=== PATIENT | female | born 1980 | race Caucasian/White ===

== ENCOUNTER 2016-10-30 23:49 | Emergency (ER) | payer OTHER ==
[2016-10-30 23:55] VITALS: BP 103/74; PULSE 88; TEMP 98.6; BMI 25.4
--- NOTE | 2016-10-31 00:04 | PDOC ---
History of Present Illness - General Chief Complaint: Pain Stated Complaint: R EAR/JAW PAIN, BODY ACHES Time Seen by Provider: 10/30/16 23:56 History Source: Patient Exam Limitations: No Limitations - History of Present Illness Initial Comments: 10/31/16 00:21 This is a 36-year-old female comes in complaining of several complaints. Patient is complaining of an infection in her breast/painful lump, and right ear pain. Patient denies any fevers or chills but is complaining of body aches. Patient is 3 months and nursing. Patient said that the infection has been progressive 1 day and she did hot soaks to the area and it seemed to get worse. PAST MEDICAL HISTORY: no significant history PAST SURGICAL HISTORY: no significant history FAMILY HISTORY: no pertinant history SOCIAL HISTORY: Pt lives with family and is employed. MEDICATIONS: reviewed ALLERGIES: As per nursing notes Review of Systems General: No fevers or chills, no weakness, no weight loss HEENT: No change in vision. No sore throat,. + ear pain CardioVascular: No chest pain or shortness of breath Respiratory:No cough, or wheezing. Breast: Infection/painful area Gastrointestinal: no nausea, vomitting, diarrhea or constipation, No rectal bleeding Genitourinary: No dysuria, hematuria, or frequency Musculoskeletal: No joint or muscle pain or swelling Neurologic: No headache, vertigo, dizziness or loss of consciousness Psychiatric: nor depression Skin: No rashes or easy bruising Endocrine: no increased thirst or abnormal weight change Allergic: no skin or latex allergy All other systems reviewed and normal GENERAL: The patient is awake, alert, and fully oriented, in no acute distress. HEAD: Normal with no signs of trauma. EARS: Left tympanic membrane is normal, right tympanic membrane is dull and slightly red. EYES: Pupils equal, round and reactive to light, extraocular movements intact, sclera anicteric, conjunctiva clear. BREASTS: Left breast is normal on evaluation, right breast shows an area of induration, erythema tenderness but no palpable collection at this time EXTREMITIES: Normal range of motion, no edema. NEUROLOGICAL: Normal speech, normal gait. PSYCH: Normal mood, normal affect. SKIN: Warm, Dry, normal turgor, no rashes or lesions noted. Assessment and plan: This is a 36-year-old female who is 3 months nursing who has a right otitis media and a right breast cellulitis/mastitis. Patient given vancomycin here in the emergency room and discharged with a prescription for Bactrim DS. Patient was told to discard her breast milk tonight but once she starts the Bactrim tomorrow she can breast feed again. Patient however was instructed to call her OB doctor and follow-up with her OB doctor tomorrow as well for reevaluation. Past History - Past Medical History Allergies/Adverse Reactions: Allergies Allergy/AdvReac Type Severity Reaction Status Date / Time No Known Allergies Allergy Unverified 01/10/12 03:18 Home Medications: Ambulatory Orders Keppra 1,000 mg PO BID 01/10/12 Sulfamethoxazole/Trimethoprim [Bactrim DS -] 2 tab PO BID #40 tablet 10/31/16 Anemia: Yes (SICKLE CELL,THALASSEMIA MAJOR) Seizures: Yes - Surgical History Appendectomy: Yes (2007) - Immunization History Td Vaccination: No - Psycho/Social/Smoking Cessation Hx Anxiety: No Suicidal Ideation: No Smoking Status: No Smoking History: Unknown if ever smoked Have you smoked in the past 12 months: No Number of Cigarettes Smoked Daily: 0 Information on smoking cessation initiated: No Hx Alcohol Use: No Drug/Substance Use Hx: No Substance Use Type: None *Physical Exam - Vital Signs Last Vital Signs Temp Pulse Resp BP Pulse Ox 98.6 F 88 14 103/74 100 10/30/16 23:52 10/30/16 23:52 10/30/16 23:52 10/30/16 23:52 10/30/16 23:52 *DC/Admit/Observation/Transfer Diagnosis at time of Disposition: Cellulitis of right breast, Mastitis - Discharge Dispostion Disposition: HOME Condition at time of disposition: Good Admit: No - Patient Instructions Printed Discharge Instructions: DI for Mastitis Additional Instructions: Tylenol or Motrin as needed for pain. Warm soaks to the infected area of the breast 3-4 times a day as discussed. Call your OB in the morning and have your OB reevaluate the breast. Discard your breast milk overnight Get your prescription filled for Bactrim take your first tablet tomorrow morning after taking the Bactrim U can restart breast-feeding. Return to the emergency department immediately with ANY new, persistent or worsening symptoms. Continue any medications as previously prescribed by your physician. You should follow up with your primary doctor as soon as possible regarding today's emergency department visit. . Please make sure your doctor reviews the results of your emergency evaluation. Thank you for coming to the Emergency Department today for your care. It was a pleasure to see you today. Please note that your evaluation is INCOMPLETE until you follow-up with your doctor.
[2016-10-31] MEDS ORDERED: VANCOMYCIN 1,000 MG VIAL (RESTRICTED TO ID ONLY) ONE (00:19)
[2016-10-31] MEDS ORDERED: VANCOMYCIN 1 GRAM (PRE-DOCKED) 1,000 MG/250 ML BAG IVPB ONE (00:20)
[2016-10-31] MEDS ORDERED: diphenhydrAMINE HCL 50 MG CAPSULE ONE (01:42)
== END 2016-10-31 03:00 | disposition home or self-care (01) ==
LOC: FER 23:49
DX: N61.0 Mastitis without abscess (principal); D57.80 Other sickle-cell disorders without crisis; D56.1 Beta thalassemia
CPT/HCPCS: 99282-25

== ENCOUNTER 2016-12-02 20:45 | Emergency (ER) | payer OTHER ==
[2016-12-02 20:55] VITALS: BP 107/77; PULSE 88; TEMP 97.9; BMI 25.4
--- NOTE | 2016-12-02 21:03 | PDOC ---
History of Present Illness - General History Source: Patient Exam Limitations: No Limitations - History of Present Illness Initial Comments: 12/02/16 21:08 The patient is a 36 year old female with a significant past medical history of MRSA, who presents to the ER with cysts in both armpits. Patient states she was previously admitted and treated for MRSA with vancomycin a few months ago. She was discharged with clindamycin. Patient says she is currently off the clindamycin and developed nodules in both armpits. She states the nodules are tender to touch. She denies taking any pain medication. Patient says she is currently her 3 month old child. Denies weakness, numbness, paresthesia Denies fever, chills Denies purulence PAST MEDICAL HISTORY: MRSA PAST SURGICAL HISTORY: no significant history FAMILY HISTORY: no pertinent history SOCIAL HISTORY: Pt lives with family and is employed. MEDICATIONS: reviewed ALLERGIES: As per nursing notes <DeonRadha - Last Filed: 12/02/16 21:11> - General History Source: Patient Exam Limitations: No Limitations - History of Present Illness Initial Comments: 12/02/16 21:33 A portion of this note was documented by scribe services under my direction. I have reviewed the details of the note, within reason, and agree with the documentation. The case summary and management plan written by me. 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 Patient was recently on clindamycin for a MRSA infection of the breast. Patient has been off clindamycin and now comes in with some subcutaneous nodules in her axilla is bilateral. On exam they appear to be very early infected ingrown hairs. Patient was started on clindamycin again told to do hot soaks to the area and follow-up with her OB and infectious disease doctors. <Tommie Barksdale I - Last Filed: 12/02/16 21:34> - General Chief Complaint: Abscess Boil Stated Complaint: "I HAVE CYSTS IN BOTH MY ARMPITS" Time Seen by Provider: 12/02/16 20:56 Past History <DeonRadha - Last Filed: 12/02/16 21:11> - Past Medical History Anemia: Yes (SICKLE CELL,THALASSEMIA MAJOR) Seizures: Yes Other medical history: h/o MASTITIS - Surgical History Appendectomy: Yes (2007) - Immunization History Td Vaccination: No - Psycho/Social/Smoking Cessation Hx Anxiety: No Suicidal Ideation: No Smoking Status: No Smoking History: Never smoked Have you smoked in the past 12 months: No Number of Cigarettes Smoked Daily: 0 Hx Alcohol Use: No Drug/Substance Use Hx: No Substance Use Type: None <Tommie Barksdale I - Last Filed: 12/02/16 21:34> - Past Medical History Allergies/Adverse Reactions: Allergies Allergy/AdvReac Type Severity Reaction Status Date / Time sulfamethoxazole Allergy Rash Verified 12/02/16 20:46 [From Bactrim] trimethoprim [From Bactrim] Allergy Rash Verified 12/02/16 20:46 Home Medications: Ambulatory Orders Clindamycin [Cleocin -] 300 mg PO TID #21 capsule 12/02/16 Levetiracetam [Keppra -] 500 mg PO BID 12/02/16 Review of Systems - Review of Systems Comments:: 12/02/16 21:09 General: No fevers or chills, no weakness, no weight loss HEENT: No change in vision. No sore throat,. No ear pain CardioVascular: No chest pain or shortness of breath Respiratory:No cough, or wheezing. Gastrointestinal: no nausea, vomiting, diarrhea or constipation, No rectal bleeding Genitourinary: No dysuria, hematuria, or frequency Musculoskeletal: No joint or muscle pain. Neurologic: No headache, vertigo, dizziness or loss of consciousness Psychiatric: no depression Skin: (+) Nodules on bilateral armpits. Endocrine: no increased thirst or abnormal weight change Allergic: no skin or latex allergy All other systems reviewed and normal <Uts,Radha - Last Filed: 12/02/16 21:11> *Physical Exam - Vital Signs Last Vital Signs Temp Pulse Resp BP Pulse Ox 97.9 F 88 18 107/77 100 12/02/16 20:45 12/02/16 20:45 12/02/16 20:45 12/02/16 20:45 12/02/16 20:45 - Physical Exam Comments: 12/02/16 21:09 General: Well-nourished well-developed individual, no acute distress HEENT: Throat: Normal, tonsils normal, no erythema or exudate Neck: Supple, no meningeal signs, no lymphadenopathy Eyes::Pupils equal reactive and round, extraocular motion intact Chest: Nontender to palpation Cardiac: S1-S2 normal, regular rate and rhythm, no murmurs rubs or gallops Respiratory: Lungs clear to auscultation bilateral Abdomen: Soft, nondistended, normal bowel sounds, nontender to palpation diffusely Extremities: Warm, dry, no cyanosis, clubbing, or edema Skin: Subcutaneous firm nodules in bilateral axilla with mild erythema and tenderness. No palpable collection. No discharge. Neuro: Alert and oriented x3, nonfocal exam, grossly intact, normal gait Psych: Normal mood and affect <Radha Chavarria - Last Filed: 12/02/16 21:11> - Vital Signs Last Vital Signs Temp Pulse Resp BP Pulse Ox 97.9 F 88 18 107/77 100 12/02/16 20:45 12/02/16 20:45 12/02/16 20:45 12/02/16 20:45 12/02/16 20:45 <Tommie Barksdale I - Last Filed: 12/02/16 21:34> *DC/Admit/Observation/Transfer - Attestations Scribe Attestion: 12/02/16 21:10 Documentation prepared by Radha Chavarria, acting as medical practice administrator for Tommie Barksdale MD. <Radha Chavarria - Last Filed: 12/02/16 21:11> - Discharge Dispostion Admit: No <Tommie Barksdale I - Last Filed: 12/02/16 21:34> Diagnosis at time of Disposition: Axillary adenitis - Discharge Dispostion Disposition: HOME Condition at time of disposition: Stable - Prescriptions Prescriptions: Clindamycin [Cleocin -] 300 mg PO TID #21 capsule - Patient Instructions Additional Instructions: Take clindamycin 1 tablet 3 times a day for 7 days. Follow-up with your infectious disease specialist this week. Hot soaks to the armpit areas where the lumps are. Return if you develop any fevers, increasing swelling redness and pain to the areas. Return to the emergency department immediately with ANY new, persistent or worsening symptoms. Continue any medications as previously prescribed by your physician. You should follow up with your primary doctor as soon as possible regarding today's emergency department visit. . Please make sure your doctor reviews the results of your emergency evaluation. Thank you for coming to the Emergency Department today for your care. It was a pleasure to see you today. Please note that your evaluation is INCOMPLETE until you follow-up with your doctor.
[2016-12-02] MEDS ORDERED: CLINDAMYCIN HCL 300 MG CAPSULE PO ONE (21:04)
[2016-12-02] MEDS ORDERED: CLINDAMYCIN HCL 150 MG CAPSULE (FP) ONE (21:11)
== END 2016-12-02 21:16 | disposition home or self-care (01) ==
LOC: FER 20:45
DX: I88.9 Nonspecific lymphadenitis, unspecified (principal); Z86.14 Personal history of Methicillin resistant Staphylococcus aureus infection; E87.1 Hypo-osmolality and hyponatremia; D56.1 Beta thalassemia
CPT/HCPCS: 99283-25

== ENCOUNTER 2016-12-08 17:50 | Emergency (ER) | payer OTHER ==
[2016-12-08 18:05] VITALS: BP 107/87; PULSE 119; TEMP 98.3; BMI 24.9
[2016-12-08] MEDS ORDERED: LIDOCAINE HCL 1%, 10 MG/ML (50 mL VIAL) SQ ONE (18:32)
--- NOTE | 2016-12-08 18:34 | PDOC ---
History of Present Illness - General History Source: Patient Exam Limitations: No Limitations - History of Present Illness Initial Comments: 12/08/16 18:47 The patient is a 36 year old female with a significant past medical history of MRSA who presents to the ED with complaints of pain to the left armpit for several days. Patient was recently seen in the ED on 11/25/16 and was diagnosed with axillary adenitis and discharged home with clindamycin. 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 Patient comes into the ED with bilateral axillary abscess. She reports worsening pain and swelling in the left armpit. Patient is a young infant. Denies nausea or vomiting. Denies fevers or chills. Denies chest pain or shortness of breath. Denies any other symptoms. <Mary Jo Blank - Last Filed: 12/08/16 18:47> <Carlyn Marquez - Last Filed: 12/08/16 19:17> - General Chief Complaint: Abscess Boil Stated Complaint: LEFT AXILLARY BOIL Time Seen by Provider: 12/08/16 18:26 Past History <Mary Jo Blank - Last Filed: 12/08/16 18:47> - Past Medical History Anemia: Yes (SICKLE CELL,THALASSEMIA MAJOR) Seizures: Yes - Surgical History Appendectomy: Yes (2007) - Immunization History Td Vaccination: No - Psycho/Social/Smoking Cessation Hx Anxiety: No Suicidal Ideation: No Smoking Status: No Smoking History: Never smoked Have you smoked in the past 12 months: No Number of Cigarettes Smoked Daily: 0 Hx Alcohol Use: No Drug/Substance Use Hx: No Substance Use Type: None <Carlyn Marquez - Last Filed: 12/08/16 19:17> - Past Medical History Allergies/Adverse Reactions: Allergies Allergy/AdvReac Type Severity Reaction Status Date / Time sulfamethoxazole Allergy Rash Verified 12/02/16 20:46 [From Bactrim] trimethoprim [From Bactrim] Allergy Rash Verified 12/02/16 20:46 Home Medications: Ambulatory Orders Clindamycin [Cleocin -] 300 mg PO TID #21 capsule 12/02/16 Levetiracetam [Keppra -] 500 mg PO BID 12/02/16 Review of Systems - Review of Systems Able to Perform ROS?: Yes Comments:: 12/08/16 18:47 GENERAL/CONSTITUTIONAL: No fever or chills. No weakness. HEAD, EYES, EARS, NOSE AND THROAT: No change in vision. No ear pain or discharge. No sore throat. CARDIOVASCULAR: No chest pain or shortness of breath. RESPIRATORY: No cough, wheezing, or hemoptysis. GASTROINTESTINAL: No nausea, vomiting, diarrhea or constipation. GENITOURINARY: No dysuria, frequency, or change in urination. MUSCULOSKELETAL: No joint or muscle swelling or pain. No neck or back pain. SKIN:+ left armpit abscess, with pain and swelling. No rash NEUROLOGIC: No headache, vertigo, loss of consciousness, or change in strength/ sensation. ENDOCRINE: No increased thirst. No abnormal weight change. HEMATOLOGIC/LYMPHATIC: No anemia, easy bleeding, or history of blood clots. ALLERGIC/IMMUNOLOGIC: No hives or skin allergy. All Other Systems: Reviewed and Negative <Mary Jo Blank - Last Filed: 12/08/16 18:47> *Physical Exam - Vital Signs Last Vital Signs Temp Pulse Resp BP Pulse Ox 98.3 F 119 H 16 107/87 100 12/08/16 17:57 12/08/16 17:57 12/08/16 17:57 12/08/16 17:57 12/08/16 17:57 - Physical Exam Comments: 12/08/16 18:48 GENERAL: Awake, alert, and fully oriented, in no acute distress HEAD: No signs of trauma EYES: PERRLA, EOMI, sclera anicteric, conjunctiva clear ENT: Auricles normal inspection, hearing grossly normal, nares patent, oropharynx clear without exudates. Moist mucosa NECK: Normal ROM, supple, no lymphadenopathy, JVD, or masses LUNGS: Breath sounds equal, clear to auscultation bilaterally. No wheezes, and no crackles HEART: Regular rate and rhythm, normal S1 and S2, no murmurs, rubs or gallops ABDOMEN: Soft, nontender, normoactive bowel sounds. No guarding, no rebound. No masses EXTREMITIES: Normal range of motion, no edema. No clubbing or cyanosis. No cords, erythema, or tenderness NEUROLOGICAL: Normal speech SKIN: + left axillary palpable fluctuance, 1in x 1in, with overlying redness and warmth. Right axillary small nodule, no fluctuance. Warm, Dry, normal turgor , no rashes or lesions noted. <Mary Jo Blank - Last Filed: 12/08/16 18:47> - Vital Signs Last Vital Signs Temp Pulse Resp BP Pulse Ox 98.3 F 119 H 16 107/87 100 12/08/16 17:57 12/08/16 17:57 12/08/16 17:57 12/08/16 17:57 12/08/16 17:57 <Carlyn Marquez - Last Filed: 12/08/16 19:17> Procedures - Incision and Drainage I&D Site: Left: Axilla Betadine cleansed: Yes Anesthesia: 1% Lidocaine Blade Size: 11 Attempts: 1 Plain Packing: Yes Complications: none <Carlyn Marquez - Last Filed: 12/08/16 19:17> Medical Decision Making - Medical Decision Making 12/08/16 18:33 36 yo F with h/o adenitis here with c/o left axillaqry pain swelling. was started on clindamycin recently no improveement. no f/c no n/v. saw a surgeon who recommended surgery. no other complaints. no drainage. on exam noted to have left axillary fluctuance, 1 in x 1 in, overlying redness, an warmth. right axillasmall nodule, no fluctuance. plan I & D , continue abx and surgery followup. 12/08/16 19:15 I& D performed. expressed 2 - 3 ml pus, tolerated well. iodoform packing placed. dc home told to return 48 hours for wound eval. <Carlyn Marquez - Last Filed: 12/08/16 19:17> *DC/Admit/Observation/Transfer - Attestations Scribe Attestion: 12/08/16 18:48 Documentation prepared by Mary Jo Blank, acting as diagnostic medical sonographer for Carlyn Marquez MD <Mary Jo Blank - Last Filed: 12/08/16 18:47> - Discharge Dispostion Admit: No <Carlyn Marquez - Last Filed: 12/08/16 19:17> Diagnosis at time of Disposition: Abscess - Discharge Dispostion Disposition: HOME Condition at time of disposition: Good - Referrals Referrals: Flory Bradford [Primary Care Provider] - - Patient Instructions Printed Discharge Instructions: DI for Incision and Drainage of a Skin Abscess Additional Instructions: return to ED in 48 hours for packing removal. return for fever, or any concerns. take ibuprofen 400 mg every 8 hours as needed for pain. continue taking clindamycin.
== END 2016-12-08 19:20 | disposition home or self-care (01) ==
LOC: FER 17:50
PROC: 0H9CX0Z Drainage of Left Upper Arm Skin with Drainage Device, External Approach (ICD-10-PCS; principal; 2016-12-08)
DX: L02.412 Cutaneous abscess of left axilla (principal)
CPT/HCPCS: 99282-25

== ENCOUNTER 2016-12-10 19:33 | Emergency (ER) | payer OTHER ==
[2016-12-10 19:47] VITALS: BP 101/68; PULSE 70; TEMP 98; BMI 26.6
--- NOTE | 2016-12-10 20:10 | PDOC ---
Suture Removal/Wound Check HPI - History of Present Illness Chief Complaint: Wound Stated Complaint: WOUND RECHECK Time Seen by Provider: 12/10/16 19:51 History Source: Yes: Patient Exam Limitations: Yes: No Limitations Treated at: [facility] ED Date of Last ED visit: 12/08/16 - Previous ED Treatment Type of procedure performed on last visit: Yes: I&D of Abscess Tetanus Immunization: Yes: Up to Date Antibiotics Prescribed: Yes - Onset of Previous Treatment Date of Occurence: 12/08/16 Comment:: 36 yo F presents for wound check s/p I&D of L axillary abscess 2 days ago. Wound was packed and she was placed on clinda. She states she has been uncomfortable, but no severe pain, no fever. She has left the dressing in place. Past History - Past Medical History Allergies/Adverse Reactions: Allergies sulfamethoxazole [From Bactrim] Allergy (Verified 12/10/16 19:37) Rash trimethoprim [From Bactrim] Allergy (Verified 12/10/16 19:37) Rash Home Medications: Ambulatory Orders Clindamycin [Cleocin -] 300 mg PO TID #21 capsule 12/02/16 Levetiracetam [Keppra -] 500 mg PO BID 12/02/16 Clindamycin [Cleocin -] 450 mg PO Q8H #63 capsule 12/10/16 - Reproductive History LMP: 01/09/12 - Immunization History Tetanus Status: Unknown - Social History Smoking History: No Smoking Status: Never smoked Number of Ciarettes Per Day: 0 Alcohol Use: none Drug Use: none Suture Removal/Wound Check PE - Physical Exam Comments: GENERAL: Awake, alert, and fully oriented, in no acute distress EXTREMITIES: Normal range of motion, no edema. No clubbing or cyanosis. No cords, erythema, or tenderness SKIN: Warm, Dry, normal turgor, no rashes. L arm with gauze in place. *Review of Systems - Review of Systems Able to Perform ROS?: Yes Comments:: GENERAL/CONSTITUTIONAL: No fever or chills. No weakness. MUSCULOSKELETAL: No joint or muscle swelling or pain. No neck or back pain. SKIN: No rash Procedures - Additional Procedures Progress: Packing removed. With mod purulent material on it. Small amt of pus expressed from the wound. No surrounding induration or cellulitis. Medical Decision Making - Medical Decision Making Based on the amount of packing, it appears that the wound was extensive. Will continue the clinda- 450 mg TID x7 days. Rx sent to pharmacy. There was problem with previous prescription, so she missed dose today. I gave 600 mg in ED. Sterile gauze placed on the wound. I counseled her to use warm salt water soaks twice a day if able, to help the wound heal, but also to keep it open. *DC/Admit/Observation/Transfer Diagnosis at time of Disposition: Abscess - Discharge Dispostion Disposition: HOME Condition at time of disposition: Stable Admit: No - Prescriptions Prescriptions: Clindamycin [Cleocin -] 450 mg PO Q8H #63 capsule - Patient Instructions Printed Discharge Instructions: DI for Incision and Drainage of a Skin Abscess Additional Instructions: WARM SALT WATER SOAKS TWICE A DAY, THEN DRESS WITH DRY GAUZE.
[2016-12-10] MEDS ORDERED: CLINDAMYCIN HCL 300 MG CAPSULE PO ONE (20:16)
[2016-12-10] MEDS ORDERED: CLINDAMYCIN HCL 150 MG CAPSULE (FP) ONE (20:19)
--- NOTE | 2016-12-14 07:43 | PDOC ---
Patient Follow-up (Call Back) - Post ED Follow - Up Condition at time of discharge: Stable Disposition at time of original discharge: HOME - Disposition Additional Instructions/Notes: Wound culture from the abscess is presumptive for MRSA. Patient is artery on clindamycin. Sensitivities are pending. No change in treatment is required at this time. Patient to continue clindamycin pending final culture results with sensitivities. Further results to be checked, based upon the callback system, will likely be ready tomorrow.
== END 2016-12-10 20:22 | disposition home or self-care (01) ==
LOC: FER 19:33
DX: Z48.01 Encounter for change or removal of surgical wound dressing (principal)
CPT/HCPCS: 87070; 87186; 87205; 99282-25

== ENCOUNTER 2018-02-15 15:48 | Emergency (ER) | payer OTHER ==
[2018-02-15 16:00] VITALS: BP 108/70; PULSE 70; TEMP 98.4; BMI 26.6
[2018-02-15] MEDS ORDERED: ONDANSETRON *ODT* 4 MG TABLET SL ONE (16:00)
[2018-02-15] MEDS ORDERED: ONDANSETRON *ODT* 4 MG TABLET ONE (16:05)
--- NOTE | 2018-02-15 16:08 | PDOC ---
Attending Attestation - Resident Resident Name: Fili Joy - ED Attending Attestation I have performed the following: I have examined & evaluated the patient, The case was reviewed & discussed with the resident, I agree w/resident's findings & plan, Exceptions are as noted - HPI HPI: 37 yo F presents with nausea/vomiting. She states that she missed her period in January, took a home test and it was positive. She states that after she took the test, she started to develop nausea, and now has been unable to keep anything down. She called her shift production associate, the covering physician referred her to the ED. Denies abd pain, fever, dysuria. - Physicial Exam PE: GENERAL: Awake, alert, and fully oriented, in no acute distress HEAD: No signs of trauma EYES: PERRLA, EOMI, sclera anicteric, conjunctiva clear ENT: Auricles normal inspection, hearing grossly normal, nares patent, oropharynx clear without exudates. Dry mucosa NECK: Normal ROM, supple, no lymphadenopathy, JVD, or masses LUNGS: Breath sounds equal, clear to auscultation bilaterally. No wheezes, and no crackles HEART: Regular rate and rhythm, normal S1 and S2, no murmurs, rubs or gallops ABDOMEN: Soft, nontender, normoactive bowel sounds. No guarding, no rebound. No masses EXTREMITIES: Normal range of motion, no edema. No clubbing or cyanosis. No cords, erythema, or tenderness NEUROLOGICAL: Cranial nerves II through XII grossly intact. Normal speech, normal gait SKIN: Warm, Dry, normal turgor, no rashes or lesions noted. - Medical Decision Making Will give zofran ODT. Patient declined IV placement in ED, preferred to go home and take oral rehydration. No signs of acute abdomen. Stable for DC home.
--- NOTE | 2018-02-15 16:09 | PDOC ---
History of Present Illness <Gabriella Moeller - Last Filed: 02/15/18 16:09> - General History Source: Patient Exam Limitations: No Limitations - History of Present Illness Initial Comments: 02/15/18 16:11 Patient is a 37F with history of sickle cell trait, thalassemia, seizure disorder and sarcoidosis here today complaining of nausea and vomiting for the past two days. Patient is , LMP 2 months ago. She had similar episode of vomiting in her prior . Denies fevers, chills, blood in vomit, abdominal pain, vaginal bleeding. <Fili Joy - Last Filed: 02/15/18 16:16> - General Chief Complaint: Nausea Stated Complaint: PRENGANCY NAUSEA Time Seen by Provider: 02/15/18 15:50 Past History <Gabriella Moeller - Last Filed: 02/15/18 16:09> - Past Medical History Anemia: Yes (SICKLE CELL,THALASSEMIA MAJOR) COPD: No Seizures: Yes Other medical history: SARCOIDOSIS - Surgical History Appendectomy: Yes (2007) - Reproductive History Is Patient Now?: Yes (SELF REPORTED) - Immunization History Td Vaccination: No - Suicide/Smoking/Psychosocial Hx Smoking Status: No Smoking History: Never smoked Have you smoked in the past 12 months: No Number of Cigarettes Smoked Daily: 0 Hx Alcohol Use: Yes (SOCIAL) Drug/Substance Use Hx: No Substance Use Type: None <Fili Joy - Last Filed: 02/15/18 16:16> - Past Medical History Allergies/Adverse Reactions: Allergies Allergy/AdvReac Type Severity Reaction Status Date / Time sulfamethoxazole Allergy Rash Verified 12/10/16 19:37 [From Bactrim] trimethoprim [From Bactrim] Allergy Rash Verified 12/10/16 19:37 Home Medications: Ambulatory Orders levETIRAcetam [Keppra -] 500 mg PO BID 12/02/16 Ondansetron [Zofran *Odt*] 8 mg SL BID #10 od.tablet 02/15/18 Review of Systems - Review of Systems Comments:: 02/15/18 16:13 GENERAL/CONSTITUTIONAL: No fever or chills. No weakness. HEAD, EYES, EARS, NOSE AND THROAT: No change in vision. No ear pain or discharge. No sore throat. CARDIOVASCULAR: No chest pain or shortness of breath RESPIRATORY: No cough, wheezing, or hemoptysis. GASTROINTESTINAL: +nausea, vomiting. No diarrhea or constipation. GENITOURINARY: No dysuria, frequency, or change in urination. MUSCULOSKELETAL: No joint or muscle swelling or pain. No neck or back pain. SKIN: No rash NEUROLOGIC: No headache, vertigo, loss of consciousness, or change in strength/ sensation. ENDOCRINE: No increased thirst. No abnormal weight change HEMATOLOGIC/LYMPHATIC: No anemia, easy bleeding, or history of blood clots. ALLERGIC/IMMUNOLOGIC: No hives or skin allergy. <Fili Joy - Last Filed: 02/15/18 16:16> *Physical Exam - Vital Signs Last Vital Signs Temp Pulse Resp BP Pulse Ox 98.4 F 70 17 108/70 100 02/15/18 15:49 02/15/18 15:49 02/15/18 15:49 02/15/18 15:49 02/15/18 15:49 <Gabriella Moeller - Last Filed: 02/15/18 16:09> - Vital Signs Last Vital Signs Temp Pulse Resp BP Pulse Ox 98.4 F 70 17 108/70 100 02/15/18 15:49 02/15/18 15:49 02/15/18 15:49 02/15/18 15:49 02/15/18 15:49 - Physical Exam Comments: 02/15/18 16:14 GENERAL: Awake, alert, and fully oriented, in no acute distress HEAD: No signs of trauma, normocephalic, atraumatic EYES: PERRLA, EOMI, sclera anicteric, conjunctiva clear ENT: Auricles normal inspection, hearing grossly normal, nares patent, oropharynx clear without exudates. Dry mucosa NECK: Normal ROM, supple, no lymphadenopathy, JVD, or masses LUNGS: No distress, speaks full sentences, clear to auscultation bilaterally HEART: Regular rate and rhythm, normal S1 and S2, no murmurs, rubs or gallops, peripheral pulses normal and equal bilaterally. ABDOMEN: Soft, nontender, normoactive bowel sounds. No guarding, no rebound. No masses EXTREMITIES: Normal inspection, Normal range of motion, no edema. No clubbing or cyanosis. NEUROLOGICAL: Cranial nerves II through XII grossly intact. Normal speech, normal gait, no focal sensorimotor deficits SKIN: Warm, Dry, normal turgor, no rashes or lesions noted. <Fili Joy - Last Filed: 02/15/18 16:16> ED Treatment Course - Medications Given in the ED: ED Medications Discontinued Medications Generic Name Dose Route Start Last Admin Trade Name Freq PRN Reason Stop Dose Admin Ondansetron HCl 4 mg 02/15/18 16:00 02/15/18 16:07 Zofran Odt - SL 02/15/18 16:01 4 mg ONCE ONE Administration <Gabriella Moeller - Last Filed: 02/15/18 16:09> - Medications Given in the ED: ED Medications Discontinued Medications Generic Name Dose Route Start Last Admin Trade Name Freq PRN Reason Stop Dose Admin Ondansetron HCl 4 mg 02/15/18 16:00 02/15/18 16:07 Zofran Odt - SL 02/15/18 16:01 4 mg ONCE ONE Administration <Fili Joy - Last Filed: 02/15/18 16:16> Medical Decision Making - Medical Decision Making 02/15/18 16:14 Patient is 37F at ~ 2 months here today with nausea and vomiting. Vital signs normal and stable. No abdominal pain. Patient offered IV hydration, but does not wish to stay for IV. Will PO hydrate at home. Given return precautions. Has follow up appointment in 2 days. <Fili Joy - Last Filed: 02/15/18 16:16> *DC/Admit/Observation/Transfer - Discharge Dispostion Decision to Admit order: No <Gabriella Moeller - Last Filed: 02/15/18 16:09> - Discharge Dispostion Decision to Admit order: No <Fili Joy - Last Filed: 02/15/18 16:16> Diagnosis at time of Disposition: Hyperemesis gravidarum Nausea & vomiting Qualifiers: Vomiting type: unspecified Vomiting Intractability: non-intractable Qualified Code(s): R11.2 - Nausea with vomiting, unspecified - Discharge Dispostion Disposition: HOME Condition at time of disposition: Stable - Prescriptions Prescriptions: Ondansetron [Zofran *Odt*] 8 mg SL BID #10 od.tablet - Referrals Referrals: Flory Bradford [Primary Care Provider] - - Patient Instructions - Post Discharge Activity
== END 2018-02-15 16:16 | disposition home or self-care (01) ==
LOC: FER 15:48
DX: O26.891 Other specified pregnancy related conditions, first trimester (principal); Z3A.08 8 weeks gestation of pregnancy; O21.0 Mild hyperemesis gravidarum
CPT/HCPCS: 99282-25; Q0162

== ENCOUNTER 2019-07-10 01:31 | Emergency (ER) | payer OTHER ==
[2019-07-10 01:45] VITALS: BP 110/67; PULSE 90; TEMP 98.5; BMI 23.9
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
== END 2019-07-10 01:58 | disposition home or self-care (01) ==
LOC: FER 01:31
DX: S80.12XA Contusion of left lower leg, initial encounter (principal); W22.8XXA Striking against or struck by other objects, initial encounter; Y93.89 Activity, other specified; Y92.89 Other specified places as the place of occurrence of the external cause; Z88.8 Allergy status to other drugs, medicaments and biological substances; F17.210 Nicotine dependence, cigarettes, uncomplicated; R56.9 Unspecified convulsions; D57.3 Sickle-cell trait
CPT/HCPCS: 99281-25

== ENCOUNTER 2019-07-19 12:45 | Emergency (ER) | payer OTHER ==
[2019-07-19 13:12] VITALS: TEMP 97.9; BMI 23.8
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
[2019-07-19 13:56] LABS: BASO % 0.7 % (0-2.0); HEMOGLOBIN 11.7 GM/dl (10.7-15.3); MONO % 9.3 % (3.8-10.2)
[2019-07-19 14:02] LABS: EOS % 4.2 % (0-4.5); HEMATOCRIT 35.7 % (32.4-45.2); LYMPH % 26.5 % (8-40); MCHC 32.9 g/dl (32.0-36.0); MEAN PLT VOLUME 9.1 fl (7.5-11.1); NEUT % 59.3 % (42.8-82.8); PLATELET COUNT 215 K/MM3 (134-434); RBC 4.35 M/mm3 (3.60-5.2); RDW 14.3 % (11.6-15.6); WHITE BLOOD COUNT 4.4 K/mm3 (4.0-10.8)
[2019-07-19 14:04] LABS: ALBUMIN 4.4 g/dl (3.4-5.0); BILIRUBIN,TOTAL 0.7 mg/dl (0.2-1); CALCIUM 8.9 mg/dl (8.5-10); CREATININE 0.7 mg/dl (0.55-1.3); TOT PROT 7.2 g/dl (6.4-8.2)
[2019-07-19 17:28] VITALS: BP 96/58; PULSE 75
--- NOTE | 2019-07-20 12:45 | EKG ---
Test Reason : Blood Pressure : / mmHG Vent. Rate : 063 BPM Atrial Rate : 063 BPM P-R Int : 108 ms QRS Dur : 084 ms QT Int : 440 ms P-R-T Axes : 019 078 047 degrees QTc Int : 450 ms POOR DATA QUALITY, INTERPRETATION MAY BE ADVERSELY AFFECTED SINUS RHYTHM WITH SHORT IL OTHERWISE NORMAL ECG NO PREVIOUS ECGS AVAILABLE Confirmed by MD Alberts Daniel ([id number]) on 07/20/2019 12:44:43 PM Referred By: Confirmed By:Alejandro Alberts MD
== END 2019-07-19 17:41 | disposition home or self-care (01) ==
LOC: FER 12:45
DX: S80.12XD Contusion of left lower leg, subsequent encounter (principal); Z88.8 Allergy status to other drugs, medicaments and biological substances; D57.3 Sickle-cell trait; D86.9 Sarcoidosis, unspecified; F41.9 Anxiety disorder, unspecified
CPT/HCPCS: 36415; 71046-TC-FY; 71275-TC; 80053; 81025; 85025; 85379; 93005; 93971-TC; 99284-25; Q9967

== ENCOUNTER 2021-06-28 08:13 | Emergency (ER) | payer OTHER ==
[2021-06-28 08:32] VITALS: BP 97/84; TEMP 99.9; BMI 23.1
[2021-06-28 10:12] VITALS: PULSE 85
== END 2021-06-28 08:33 | disposition home or self-care (01) ==
LOC: FER 08:13
DX: R19.7 Diarrhea, unspecified (principal)
CPT/HCPCS: 99283-25; C9803; U0003; U0005

== ENCOUNTER 2023-06-07 13:14 | Emergency (ER) | payer OTHER ==
[2023-06-07 13:32] VITALS: BP 109/69; PULSE 75; RESP 18; TEMP 97.8; BMI 23.9
[2023-06-07] MEDS ORDERED: SODIUM CHLORIDE 0.9% 1000 ML INFUS.BAG IV ONE (13:47)
[2023-06-07] MEDS ORDERED: METOCLOPRAMIDE HCL INJECTION 10 MG/2 ML VIAL IVPUSH ONE (13:47)
[2023-06-07] MEDS ORDERED: ACETAMINOPHEN 1000 MG/100 ML BAG IVPB ONE (13:47)
[2023-06-07] MEDS ORDERED: ACETAMINOPHEN INJECTION 100 ML IVPB ONE (14:02)
[2023-06-07] MEDS ORDERED: METOCLOPRAMIDE HCL INJECTION 10 MG/2 ML VIAL ONE (14:02)
[2023-06-07 14:04] LABS: HCG,QUALITATIVE URINE Negative
[2023-06-07 14:14] LABS: INR 1.08 (0.83-1.09); PROTHROMBIN TIME (PATIENT) 12.5 SEC (9.7-13.0)
[2023-06-07 14:17] LABS: ACTIVATED PTT 28.8 SECONDS (25.2-36.5)
[2023-06-07 14:24] LABS: HEMATOCRIT 43.5 % (32.4-45.2); HEMOGLOBIN 14.4 G/dL (10.7-15.3); MCH 29.2 pg (25.7-33.7); MCHC 33.1 g/dl (32.0-36.0); MEAN CELL VOLUME 88.3 fl (80-96); MEAN PLT VOLUME 9.7 fl (7.5-11.1); PLATELET COUNT 158.6 10^3/uL (134-434); RBC 4.93 10^6/uL (3.60-5.2); RDW 14.6 % (11.6-15.6)
[2023-06-07 14:35] LABS: ALBUMIN 4.3 g/dl (3.4-5.0); BILIRUBIN,TOTAL 0.3 mg/dl (0.2-1); MAGNESIUM 1.7 mg/dL (1.8-2.4); POTASSIUM 3.8 mmol/L (3.5-5.1); TOT PROT 6.6 g/dl (6.4-8.2)
[2023-06-07] MEDS ORDERED: MAGNESIUM SULF 50% (8.12 MEQ/2 ML-1 GM VIAL) IVPB ONE (14:40)
[2023-06-07 14:43] LABS: PLATELET ESTIMATE ADEQUATE
[2023-06-07] MEDS ORDERED: MAGNESIUM SULFATE IN WATER 2 GM/50 ML IVPB IVPB ONE (14:46)
[2023-06-07 18:05] LABS: THROAT:GRP A STREP NOT DETECTED (NOTDETECTED)
== END 2023-06-07 16:50 | disposition home or self-care (01) ==
LOC: FER 13:14
PROC: 3E033NZ Introduction of Analgesics, Hypnotics, Sedatives into Peripheral Vein, Percutaneous Approach (ICD-10-PCS; principal; 2023-06-07)
PROC: 3E033GC Introduction of Other Therapeutic Substance into Peripheral Vein, Percutaneous Approach (ICD-10-PCS; 2023-06-07)
PROC: 3E033GC Introduction of Other Therapeutic Substance into Peripheral Vein, Percutaneous Approach (ICD-10-PCS; 2023-06-07)
DX: U07.1 COVID-19 (principal); M79.10 Myalgia, unspecified site; R11.2 Nausea with vomiting, unspecified; R51.9 Headache, unspecified; H53.142 Visual discomfort, left eye; R07.0 Pain in throat
CPT/HCPCS: 0241U-QW; 36415; 70450-TC; 71045-TC-FY; 80053; 81003; 83735; 84703; 85027; 85610; 85730; 87651; 99291

== ENCOUNTER 2024-04-23 13:00 | Emergency (ER) | payer OTHER ==
[2024-04-23 13:29] VITALS: BP 110/72; PULSE 72; RESP 18; TEMP 98.2; BMI 25.8
[2024-04-23 15:04] LABS: HEMATOCRIT 40.1 % (32.4-45.2); HEMOGLOBIN 13.1 G/dL (10.7-15.3); MCH 29.2 pg (25.7-33.7); MCHC 32.6 g/dl (32.0-36.0); MEAN CELL VOLUME 89.5 fl (80-96); MEAN PLT VOLUME 9.9 fl (7.5-11.1); PLATELET COUNT 183.5 10^3/uL (134-434); RBC 4.48 10^6/uL (3.60-5.2); RDW 15.7 % (11.6-15.6); WHITE BLOOD COUNT 7.2 10^3/uL (4.0-10.8)
[2024-04-23 15:05] LABS: INR 0.97 (0.83-1.09); PROTHROMBIN TIME (PATIENT) 11.1 SEC (9.7-13.0)
[2024-04-23 15:08] LABS: ACTIVATED PTT 29.8 SECONDS (25.2-36.5)
[2024-04-23 15:25] LABS: ALBUMIN 4.5 g/dl (3.4-5.0); BILIRUBIN,TOTAL 0.4 mg/dl (0.2-1); CALCIUM 9.5 mg/dl (8.5-10.1); CREATININE 0.8 mg/dl (0.6-1.3); POTASSIUM 3.6 mmol/L (3.5-5.1); TOT PROT 6.2 g/dl (6.4-8.2)
[2024-04-23 15:34] LABS: PLATELET ESTIMATE ADEQUATE
== END 2024-04-23 16:20 | disposition home or self-care (01) ==
LOC: FER 13:00
DX: R11.2 Nausea with vomiting, unspecified (principal); K62.5 Hemorrhage of anus and rectum; R19.7 Diarrhea, unspecified; R10.13 Epigastric pain
CPT/HCPCS: 36415; 80053; 82272; 83690; 85025; 85610; 85730; 86850; 86900; 86901; 99283-25